=== PATIENT | male | born 1950 | race Caucasian/White ===

== ENCOUNTER 2024-08-24 14:18 | Outpatient (CLI) | payer BC, SELFPAY ==
--- NOTE | ~2024-08-24 | XR_ITS ---
CHEST RADIOGRAPH, PA AND LATERAL CLINICAL HISTORY: R07.9 - Chest pain, unspecified . COMPARISON: 08/15/2023 TECHNIQUE: PA and lateral views of the chest. FINDINGS The cardiomediastinal silhouette is unremarkable. Calcified granuloma within the right upper lobe, unchanged. Remainder of the lungs are clear. Visualized osseous structures and soft tissues are unremarkable. IMPRESSION: No focal infiltrate or effusion. Reviewed, dictated and finalized at location A. LOPMENT DIRECTOR
== END 2024-08-24 14:19 | disposition home or self-care (01) ==
PROVIDERS: PCP Clinical Nurse Specialist; Visit Provider Clinical Nurse Specialist
DX: R07.9 Chest pain, unspecified (principal)
CPT/HCPCS: 71046

== ENCOUNTER 2024-09-02 09:27 | Outpatient (CLI) | payer BC, SELFPAY ==
--- NOTE | ~2024-09-02 | NM_ITS ---
EXAMINATION: NM elizabeth stress w perfusion DATE: 09/02/2024 11:40 INDICATION: Chest pain TECHNIQUE: Rest images were obtained following intravenous administration of 9.6 mCi Tc99m tetrofosmi n (Myoview). The patient was infused intravenously with Lexiscan (Regadenoson). Then, 33 mCi Tc99m te trofosmin (Myoview) was administered intravenously, and stress images were obtained. Prone imaging wa s not obtained. Data was reconstructed into short axis and horizontal and vertical long axis SPECT im ages. Gated SPECT images were also obtained. COMPARISON: None. FINDINGS: Mild fixed perfusion defect at the apical lateral and mid anterior segments extending into portion of the immediately adjacent apical, apical anterior and mid anterolateral segments consistent with infarct. There is a partially reversible component at the mid anterolateral segment and contigu ous reversible perfusion defect at the basilar anterolateral segment consistent with ischemia. There is additional small mild reversible perfusion defect consistent with ischemia at the mid basilar segm ent. There is normal left ventricular chamber size, wall motion and ejection fraction. Left ventricu lar ejection fraction measures 58%. IMPRESSION: 1. Region of reversible ischemia at the mid anterolateral and basilar anterolateral segments partiall y overlapping with a region of nonreversible infarct centered at the apical lateral and mid anterior segments. 2. Second small region of mild reversible ischemia at the mid basilar segment. 3. Left ventricular ejection fraction measuring 58%. Reviewed, dictated and finalized at location B. NEERING TECHNICAL SPECIALIST IMPRESSION: 1. Region of reversible ischemia at the mid anterolateral and basilar anterolat eral segments partially overlapping with a region of nonreversible infarct cent ered at the apical lateral and mid anterior segments. 2. Second small region of mild reversible ischemia at the mid basilar segment. 3. Left ventricular ejection fraction measuring 58%.
--- NOTE | 2024-09-02 09:38 | EST_ITS ---
Patient Info Name: Ganga Orr Age: 74 years : 1950 Gender: Male Ht: 75 in Wt: 285 lbs BSA: 2.66 m2 HR: 70 bpm BP: 148 / 91 mmHg Exam Date: 09/02/2024 10:48 AM Exam Location: Echo Lab Patient Status: Outpatient Admit Date: 09/02/2024 Staff Ordering Physician: Parvin Philip Attending Provider: Parvin Philip Exercise Technologist: Marie Cole RDCS Exercise Physician: Nilton Simon DO Exam Type: CA stress elizabeth w NM Study Info A regadenoson stress test was performed. Summary 1. 1. Negative lexiscan stress test for ischemic ST changes by ECG criteria. 2. 2. Baseline hypertension. 3. 3. Nuclear scan to follow and will be reported separately. Please correlate with it. 4. 4. Patient informed of the above results. Protocol: Lexiscan Stress ECG Details Stage: REST Duration (min): 0 min : 55 sec HR (bpm): 75 SBP (mmHg): 148 DBP (mmHg): 91 Stage: REST Duration (min): 12 min : 56 sec HR (bpm): 69 SBP (mmHg): 148 DBP (mmHg): 91 Stage: STAGE 1 Duration (min): 0 min : 59 sec HR (bpm): 77 SBP (mmHg): 145 DBP (mmHg): 83 Stage: RECOVERY Duration (min): 1 min : 0 sec HR (bpm): 83 SBP (mmHg): 145 DBP (mmHg): 83 Stage: RECOVERY Duration (min): 2 min : 0 sec HR (bpm): 79 SBP (mmHg): 145 DBP (mmHg): 83 Stage: RECOVERY Duration (min): 3 min : 0 sec HR (bpm): 87 SBP (mmHg): 141 DBP (mmHg): 74 Stage: RECOVERY Duration (min): 3 min : 4 sec HR (bpm): 87 SBP (mmHg): 141 DBP (mmHg): 74 Rest HR: 69 bpm Peak HR: 87 bpm Rest Sys BP: 148 mmHg Peak Sys BP: 145 mmHg Max Pred HR: 148 bpm % Max Pred HR: 59 % Target HR: 126 bpm Max RPP: 12,615 bpm*mmHg Termination Reason: Completed protocol Cardiac Symptoms: None Total Time: 1 min : 0 sec Rest Boswell BP: 91 mmHg Peak Boswell BP: 83 mmHg Total Dose: 0.4 mg Resting ECG Sinus rhythm. Stress ECG No ST changes. Arrhythmias None. Report Signatures
--- OUTSIDE RECORDS SUMMARY | 2024-09-02 10:10 | XMS_ITS | Clinical Summary ---
Author Organization [facility] Address [address] [place] [address]. [place], [place] [id number] [place] [id number] Care Team Providers Care Roller Stitcher Name Role Phone Mack Rutledge MD Primary Care Provider [phone] Allergies No known active allergies Medications pantoprazole 40 MG tablet 12/19/2017 Active RAPAFLO 4 MG Cap capsule TK 1 C PO D 5 01/24/2018 Active benzonatate 200 MG capsule TK ONE C PO BID FOR COUGH 0 07/16/2017 Active pantoprazole 40 MG tablet TK 1 T PO BID 1 12/19/2017 Active Immunizations Name Administration Dates Next Due Influenza (Fluvirin) 05/16/2013 Zoster (Zostavax) 91276 Unt/0.65Ml 05/16/2013 Family History Medical History Relation Comments Diabetes Father Heart Disease Father Cancer Sister Relation Status Comments Father Mother Sister Alive Social History Tobacco Use Types Packs/Day Years Used Date Smoking Tobacco: Never Smokeless Tobacco: Never Tobacco Cessation:Counseling Given: No Alcohol Use Standard Drinks/Week Comments Yes 3.3 (1 standard drink = 0.6 oz p ure alcohol) AUDIT-C Answer Date Recorded Frequency of Alcohol Consumption 2-3 times a wee k 06/11/2018 Average Number of Drinks 1 or 2 018 Frequency of Binge Drinking Not on file 02/2018 Sex and Gender Information Value Date Recorded Sex Assigned at Male 12/10/2022 3:01 PM CDT Legal Sex Male 5:29 PM CDT Gender Identity Male 06/11/2018 4:28 PM SLOT OPERATIONS DIRECTOR Sexual Orientation Straight 06/11/2018 4: 28 PM SLOT OPERATIONS DIRECTOR Last Filed Vital Signs Vital Sign Reading Time Taken Comments Blood Pressure 147/85 12/10/2022 2:59 PM CDT Pulse 89 12/10/2022 2:59 PM CDT Temperature 36.1 ??C (96.9 ??F) 01/16/2019 7:45 PM CD T Respiratory Rate 16 01/16/2019 7:45 PM CDT Oxygen Saturation 96% 12/10/2022 2:59 PM CDT Inhaled Oxygen Concentration - - Weight 129.3 kg (285 lb) 12/10/2022 2:59 PM CDT Height 188 cm (6' 2 ) 12/10/2022 2:59 PM CDT Body Mass Index 36.59 12/10/2022 2:59 PM CDT Plan of Treatment Health Maintenance Due Date Last Done Comments Colorectal Cancer Screening Colonoscopy (10 Years) 1950 Hepatitis C 01/16/1970 DTaP, Tdap and Td Vaccines ( 1 - Tdap) 01/16/1971 Zoster Vaccines (2 of 3) 07/11/2013 05/16/2013 Pneumococcal Vaccine: 65+ Ye ars (1 of 1 - PCV) 01/16/2017 COVID-19 Vaccine ( - 2023-2 5 season) 2024 Influenza Adult (#1) 2024 05/16/2013 RSV Immunization or 60+ Years (1 - 1-dose 75+ series) 01/16/2027 Meningococcal B Vaccine Aged Out No l onger eligible based on patient's age to complete this topic Meningococcal Vaccine Aged Out No yandel yamileth eligible based on patient's age to complete this topic RSV Immunizations Under 20 Months Aged Out No longer eligible based on patient's age to complete this topic Insurance [facility] Care Teams Roller Stitcher Relationship Specialty Start Date End Date Mack Rutledge MD PCP - General INTERNAL MEDICINE 05/27/18
== END 2024-09-02 09:28 | disposition home or self-care (01) ==
LOC: ANHCARD 09:31
PROVIDERS: PCP Clinical Nurse Specialist; Visit Provider Clinical Nurse Specialist
DX: I24.89 Other forms of acute ischemic heart disease (principal); I21.9 Acute myocardial infarction, unspecified; I65.1 Occlusion and stenosis of basilar artery; I50.1 Left ventricular failure, unspecified
CPT/HCPCS: 78452; 93017; A9502; J2785